=== PATIENT | female | born 1990 | race African-American/Black ===

== ENCOUNTER 2018-03-14 19:23 | Emergency (ER) | payer OTHER ==
[~2018-03-14] VITALS: Ht 157.5 cm; Wt 65.8 kg
[2018-03-14 19:49] LABS: URINE BILIRUBIN NEGATIVE (Negative); URINE BLOOD 1+ (Negative); URINE CLARITY CLEAR; URINE COLOR YELLOW; URINE GLUCOSE-RANDOM* NEGATIVE (Negative); URINE KETONES NEGATIVE (Negative); URINE LEUKOCYTES-REFLEX NEGATIVE (Negative); URINE NITRITE-REFLEX NEGATIVE (Negative); URINE PROTEIN (DIPSTICK) NEGATIVE (Negative); URINE SPECIFIC GRAVITY 1.025 (1.005-1.035)
[2018-03-14 19:59] LABS: SQUAMOUS >10 Many /LPF (0-3)
[2018-03-14 20:00] LABS: CASTS None Seen /LPF (None Seen); URINE RBC 3-10 Few /HPF (0-2); URINE WBC-REFLEX 0-5 Rare /HPF (0-5)
[2018-03-14 20:01] LABS: CRYSTALS None Seen /LPF (None Seen)
[2018-03-14] MEDS ORDERED: FLAGYL500 MG PO (20:56)
[2018-03-14 21:23] VITALS: BP 127/70
== END 2018-03-14 21:23 | disposition home or self-care (01) ==
LOC: ER 19:23
PROVIDERS: Physician Assistant
DX: N76.0 Acute vaginitis (principal); B96.89 Other specified bacterial agents as the cause of diseases classified elsewhere; A64 Unspecified sexually transmitted disease

== ENCOUNTER 2020-11-24 21:17 | Emergency (ER) | payer OTHER ==
[~2020-11-24] VITALS: Ht 157.5 cm; Wt 63.5 kg
[~2020-11-24 21:17] MED LIST: FLAGYL500 MG PO
[2020-11-24 23:00] LABS: ABSOLUTE NEUTROPHILS 8.2 thou/uL (1.4-8.2); BASOPHILS 0.9 % (0.0-2.0); EOSINOPHILS 0.8 % (0.0-3.0); HEMATOCRIT 38.9 % (37.0-47.0); HEMOGLOBIN 12.9 gm/dL (12.0-15.0); LYMPHOCYTES 25.2 % (24.0-44.0); MCH 27.6 pg (26.0-34.0); MCHC 33.2 g/dL (28.0-37.0); MONOCYTES 7.8 % (1.0-8.0); PLATELET COUNT 246 thou/uL (150-400); POLYS 65.3 % (36.0-66.0); RBC 4.68 mil/uL (4.20-5.00); WBC 12.6 thou/uL (4.0-11.0)
[2020-11-24 23:11] LABS: CALCIUM 8.7 mg/dL (8.5-10.1); CREATININE 0.9 mg/dL (0.6-1.0); POTASSIUM 3.6 mmol/L (3.5-5.1)
[2020-11-24 23:17] LABS: ALBUMIN 3.5 g/dL (3.4-5.0); TOTAL BILIRUBIN 0.3 mg/dL (0.2-1.0); TOTAL PROTEIN 7.9 g/dL (6.4-8.2)
[2020-11-25] MEDS ORDERED: IBUPROFEN 800800 MG PO (00:14)
[2020-11-25] MEDS ORDERED: TYLENOL325 M1 PO (00:14)
[2020-11-25] MEDS ORDERED: KEFLEX250 MG PO (00:14)
[2020-11-25 00:51] VITALS: BP 114/66
== END 2020-11-25 00:53 | disposition home or self-care (01) ==
LOC: ER 21:17
PROVIDERS: Emergency Medicine
DX: L05.01 Pilonidal cyst with abscess (principal); L03.317 Cellulitis of buttock; D72.829 Elevated white blood cell count, unspecified; R50.9 Fever, unspecified

== ENCOUNTER 2020-11-30 21:13 | Emergency (ER) | payer OTHER ==
[~2020-11-30] VITALS: Ht 157.5 cm; Wt 63.5 kg
[~2020-11-30 21:13] MED LIST changes: +IBUPROFEN 800800 MG PO; +KEFLEX250 MG PO; +TYLENOL325 M1 PO
[2020-11-30 21:31] VITALS: BP 127/76
== END 2020-11-30 22:34 | disposition home or self-care (01) ==
LOC: ER 21:13
DX: M54.5 Low back pain (principal); Z48.00 Encounter for change or removal of nonsurgical wound dressing